=== PATIENT | male | born 1980 | race Caucasian/White ===

== ENCOUNTER 2018-03-12 20:11 | Emergency (ER) | payer OTHER ==
[2018-03-12] MEDS ORDERED: NS 1,000 ML IV ONE ×2 (20:18→21:34)
--- NOTE | 2018-03-12 20:22 | EDPHY ---
H & P Time Seen by Provider: 03/12/18 20:13 HPI/ROS: CHIEF COMPLAINT: Presyncope HISTORY OF PRESENT ILLNESS: The patient is a 37-year-old obese man who comes to the emergency department after pre syncopal episode at home. He felt normal today. This evening he was eating dinner with his and father when he suddenly felt hot. He got up to go washes face and then began feeling lightheaded. They decided to go to the ER and his went to assist him when he slumped over her arms. She helped him to the ground. He did not lose consciousness. He denies chest pain or shortness of breath. He had mild nausea but no vomiting. No headache. No recent fevers or illness. No diarrhea. He had stable vital signs when paramedics arrived. Severity: Moderate Modifying factors: Improved with time REVIEW OF SYSTEMS: Constitutional: denies: chills, fever, recent illness, recent injury EENTM: denies: blurred vision, double vision, nose congestion Respiratory: denies: cough, shortness of breath Cardiac: See HPI Gastrointestinal/Abdominal: denies: abdominal pain, diarrhea, nausea, vomiting, blood streaked stools Genitourinary: denies: dysuria, frequency, hematuria, pain Musculoskeletal: denies: joint pain, muscle pain Skin: denies: lesions, rash, jaundice, bruising Neurological: denies: headache, numbness, paresthesia, tingling, dizziness, weakness Hematologic/Lymphatic: denies: blood clots, easy bleeding, easy bruising Immunologic/allergic: denies: HIV/AIDS, transplant 10 systems reviewed and negative except as noted EXAM: GENERAL: Well-appearing, overweight and in no acute distress. HEAD: Atraumatic, normocephalic. EYES: Pupils equal round and reactive to light, extraocular movements intact, sclera anicteric, conjunctiva are normal. ENT: TMs normal, nares patent, oropharynx clear without exudates. Moist mucous membranes. NECK: Normal range of motion, supple without lymphadenopathy or JVD. LUNGS: Breath sounds clear to auscultation bilaterally and equal. No wheezes rales or rhonchi. HEART: Regular rate and rhythm without murmurs, rubs or gallops. ABDOMEN: Soft, nontender, normoactive bowel sounds. No guarding, no rebound. No masses appreciated. BACK: No CVA tenderness, no spinal tenderness, step-offs or deformities EXTREMITIES: Normal range of motion, no pitting or edema. No clubbing or cyanosis. NEUROLOGICAL: Cranial nerves II through XII grossly intact. Normal speech, normal gait. 5/5 strength, normal movement in all extremities, normal sensation , normal reflexes PSYCH: Normal mood, normal affect. SKIN: Warm, dry, normal turgor, no visible rashes or lesions. Source: Patient Exam Limitations: No limitations - Medical/Surgical History Hx Asthma: No Hx Chronic Respiratory Disease: No Hx Diabetes: No Hx Cardiac Disease: No Hx Renal Disease: No Hx Cirrhosis: No Hx Alcoholism: No Hx HIV/AIDS: No - Family History Significant Family History: No pertinent family hx - Social History Smoking Status: Never smoked Alcohol Use: Sober Drug Use: None Constitutional: Initial Vital Signs Temperature (C) 36.4 C 03/12/18 20:16 Heart Rate 85 03/12/18 20:16 Respiratory Rate 19 03/12/18 20:16 Blood Pressure 149/88 H 03/12/18 20:16 O2 Sat (%) 97 03/12/18 20:16 O2 Delivery Mode Room Air Allergies/Adverse Reactions: dog dander Allergy (Verified 03/12/18 20:15) Home Medications: Medication Instructions Recorded NK [No Known Home Meds] 03/12/18 Medical Decision Making - Diagnostics EKG Interpretation: An EKG obtained and was read and documented in trace view. Please see trace view for full reading and report. Sinus rhythm, no acute ischemic changes ED Course/Re-evaluation: 10:00 p.m. the patient has not had any arrhythmias on the monitor. His heart rate is normal. His blood pressure is normal. He is eager to go home. We discussed follow-up with cardiology for monitoring. We discussed indications for returning. Differential Diagnosis: Partial list of the Differential diagnosis considered include but were not limited to; arrhythmia, dehydration, vasovagal and although unlikely based on the history and physical exam, I also considered aneurysm, acute coronary disease, PE. I discussed these differential diagnoses and the plan with the patient as well as the usual and expected course. The patient understands that the diagnosis is provisional and that in medicine we are not always correct and that further workup is often warranted. Usual and customary warnings were given. All of the patient's questions were answered. The patient was instructed to return to the emergency department should the symptoms at all worsen or return, otherwise to followup with the physician as we discussed. - Data Points Laboratory Results: Laboratory Results 03/12/18 20:22 03/12/18 20:22 03/12/18 03/12/18 03/12/18 20:23 20:22 20:22 WBC 12.96 10^3/uL H 10^3/uL (3.80-9.50) RBC 5.36 10^6/uL 10^6/uL (4.40-6.38) Hgb 16.0 g/dL g/dL (13.7-17.5) Hct 46.3 % % (40.0-51.0) MCV 86.4 fL fL (81.5-99.8) MCH 29.9 pg pg (27.9-34.1) MCHC 34.6 g/dL g/dL (32.4-36.7) RDW 11.9 % % (11.5-15.2) Plt Count 430 10^3/uL H 10^3/uL (150-400) MPV 9.6 fL fL (8.7-11.7) Neut % (Auto) 42.8 % % (39.3-74.2) Lymph % (Auto) 49.1 % H % (15.0-45.0) [place] % (Auto) 6.7 % % (4.5-13.0) Eos % (Auto) 0.7 % % (0.6-7.6) Baso % (Auto) 0.2 % L % (0.3-1.7) Nucleat RBC Rel Count 0.0 % % (0.0-0.2) Absolute Neuts (auto) 5.55 10^3/uL 10^3/uL (1.70-6.50) Absolute Lymphs (auto) 6.36 10^3/uL H 10^3/uL (1.00-3.00) Absolute Monos (auto) 0.87 10^3/uL H 10^3/uL (0.30-0.80) Absolute Eos (auto) 0.09 10^3/uL 10^3/uL (0.03-0.40) Absolute Basos (auto) 0.03 10^3/uL 10^3/uL (0.02-0.10) Absolute Nucleated RBC 0.00 10^3/uL 10^3/uL (0-0.01) Immature Gran % 0.5 % % (0.0-1.1) Immature Gran # 0.06 10^3/uL 10^3/uL (0.00-0.10) RBC/WBC/PLT Morphology TNP Platelet Estimate TNP Sodium 138 mEq/L mEq/L (135-145) Potassium 3.9 mEq/L mEq/L (3.3-5.0) Chloride 102 mEq/L mEq/L (97-110) Carbon Dioxide 23 mEq/l mEq/l (22-31) Anion Gap 13 mEq/L mEq/L (6-14) BUN 15 mg/dL mg/dL (7-23) Creatinine 1.1 mg/dL mg/dL (0.7-1.3) Estimated GFR > 60 Glucose 135 mg/dL H mg/dL (70-100) Calcium 9.2 mg/dL mg/dL (8.5-10.4) POC Troponin I 0.00 ng/mL ng/mL (0.00-0.08) Medications Given: Discontinued Medications Sodium Chloride (Ns) 1,000 mls @ 0 mls/hr IV EDNOW ONE; Wide Open PRN Reason: Protocol Stop: 03/12/18 20:19 Last Admin: 03/12/18 20:24 Dose: 1,000 mls Sodium Chloride (Ns) 1,000 mls @ 0 mls/hr IV ONCE ONE PRN Reason: Wide Open Stop: 03/12/18 21:35 Last Admin: 03/12/18 21:34 Dose: 1,000 mls Point of Care Test Results: Chemistry 03/12/18 20:23 POC Troponin I 0.00 ng/mL ng/mL (0.00-0.08) Departure - Departure Disposition: Home, Routine, Self-Care Clinical Impression: Pre-syncope Condition: Fair Instructions: Syncope (ED) Referrals: Patient,NotPresent [Unknown] - As per Instructions Tiffanie Alexandra MD [Medical Doctor] - 5-7 days, call for appt.
[2018-03-12 20:27] LABS: PLATELET COUNT 430 10^3/uL (150-400)
--- NOTE | 2018-03-12 20:33 | CPEKG ---
Test Reason : OPEN Blood Pressure : / mmHG Vent. Rate : 088 BPM Atrial Rate : 087 BPM P-R Int : 146 ms QRS Dur : 105 ms QT Int : 367 ms P-R-T Axes : 046 074 060 degrees QTc Int : 444 ms Sinus rhythm Confirmed by Mykel Wayne ([id number]) on 03/12/2018 8:32:41 PM Referred By: Confirmed By:Mykel Wayne
[2018-03-12 22:16] VITALS: BP 149/88
== END 2018-03-12 22:17 | disposition home or self-care (01) ==
LOC: EDUNIT#
DX: R55 Syncope and collapse (principal); E86.9 Volume depletion, unspecified
CPT/HCPCS: 84484-PO